=== PATIENT | male | born 1935 | race Caucasian/White ===

== ENCOUNTER → 2019-03-04 | Day surgery (SDC) | payer MEDICARE, BC ==
[~2019-03-04] MED LIST: ACETAMINOPHEN 325 MG TABLET PO PRN; ALBU2.5V8 IH; ALBUTEROL SULFATE 2.5 MG/3 ML NEBU. NEB PRN; ALPR0.5T6 PO; APIX5TAB3 PO; ATROPINE 0.5 MG/5 ML DISP.SYRIN. IV PRN; BALANCED SALT IRRIG OPHTH SOLN 15 ML BOTTLE. IRR ONE; BENA40TA3 PO; CATARACT OPHTH GEL 0.5 ML SYRINGE. OD ONE; CHONDROIT-SOD-HYALURONATE KIT. OD ONE; EPINEPHrine AMPULE 0.5 MG in BALANCED SALT IRRIG SOLN PLUS 500 ML IO ONE; ERYTHROMYCIN 0.5% OPHTH OINTMENT 1GM TUBE. OD ONE; FLUT1DIS5 IH; HYALURONIDASE 75UNITS in LIDOCAINE 2% PF OPHTH 10 ML SYRINGE. OD ONE; IV RINGERS SOLUTION,LACTATED 1,000 ML IV SCH; KETOROLAC TROMETHAMINE 0.5% OPHTH SOLUTION BOTTLE. OD SCH; KETOROLAC TROMETHAMINE 0.5% OPHTH SOLUTION BOTTLE. ONE; LEXAPRO5 MG PO; LIDO/EPI IN BSS OPHTH 8 ML SYRINGE OD SCH; MOXIFLOXACIN 0.5% OPHTH SOLUTION 3ML BOTTLE. OD SCH; PHENOL ORAL SPRAY 177ML BOTTLE. MM PRN; POVIDONE-IODINE 5% OPHTH SOLUTION 30ML BOTTLE. OD ONE; PROPOFOL 20 ML IV ONE; SOTA120T27 PO; SPIR25TA5 PO; TETRACAINE 0.5% OPHTH SOLUTION 4ML BOTTLE. OD ONE; TETRACAINE 0.5% OPHTH SOLUTION 4ML BOTTLE. OU ONE; diphenhydrAMINE 50 MG/ML VIAL IV PRN; prednisoLONE ACETATE 1% OPHTH SUSPENSION 5ML BOTTLE. OD SCH; prednisoLONE ACETATE 1% OPHTH SUSPENSION 5ML BOTTLE. ONE
[2019-03-04] MEDS: MOXIFLOXACIN 0.5% OPHTH SOLUTION 3ML BOTTLE. OD SCH ×3 (10:28→10:36)
--- NOTE | 2019-03-04 11:09 | PDOC4 ---
CATARACT Operative Report DATE DATE: 03/04/19 TIME: 11:07 Operation Performed Operative Report Name: Chase Ivey Operation Date: @TD@ Preoperative Diagnosis: 1. Senile cataract, RIGHT eye. 2. Anticipated intraoperative floppy iris syndrome, RIGHT eye. Postoperative Diagnosis: 1. Senile cataract, RIGHT eye. 2. Intraoperative floppy iris syndrome, RIGHT eye. Operation: 1. Phacoemulsification with posterior chamber intraocular lens implant. Surgeon: Cristopher Dsouza D.O. Anesthesia: Local with monitored anesthesia care. Description of Operation: With cardiac monitoring and intravenous sedation, the patient received peribulbar anesthesia in the holding area. Pressure was applied to the eye with a [place] balloon for approximately 10 minutes. The patient was taken to the operating room and placed in a supine position. The periorbital region was prepped and draped in the usual sterile fashion. A lid speculum was placed between the eyelids. The patient was positioned under the microscope. A temporal clear corneal incision was made with a keratome. Due to poor d ilation, 1 cc of epi-Shugarcaine was injected into the anterior chamber. Viscoelastic was then injected into the eye. A side port incision was made three clock hours to the left of the clear corneal incision. A cystotome and capsular forceps were used to make a continuous tear capsulorhexus. Hydrodissection was performed with balanced salt solution. The phacoemulsification needle was placed into the eye and the cataract was removed. The remaining cortical material was removed with irrigation and aspiration. The posterior capsule was noted to be clean and intact. Viscoelastic was again injected into the eye, inflating the posterior capsular bag. A foldable intraocular lens was then injected into the eye, unfolding as desired, and positioned in the capsular bag. The viscoelastic was aspirated from the eye. The wound edges were hydrated with balanced salt solution. There were no wound leaks. Viscoelastic was injected over the side port and clear corneal incisions. One drop of Vigamox and one drop of prednisolone acetate were instilled into the eye. The lid speculum was removed and a pressure dressing with a Lema shield was placed over the eye. The patient was taken to the recovery room in good condition. EDSON DSOUZA DO Mar 04, 2019 11:09
[2019-03-04 11:24] VITALS: BP 162/69
== END | disposition home or self-care (01) ==
LOC: SURG 09:09
PROVIDERS: ATTEND Ophthalmology
DX: H25.11 Age-related nuclear cataract, right eye (principal); H21.81 Floppy iris syndrome; I10 Essential (primary) hypertension; I48.91 Unspecified atrial fibrillation; D64.9 Anemia, unspecified; J43.9 Emphysema, unspecified; Z98.890 Other specified postprocedural states; Z99.81 Dependence on supplemental oxygen; Z72.89 Other problems related to lifestyle
CPT/HCPCS: 66984; J0171; J2704; V2632

== ENCOUNTER → 2019-03-25 | Day surgery (SDC) | payer MEDICARE, BC ==
[~2019-03-25] MED LIST changes: -CATARACT OPHTH GEL 0.5 ML SYRINGE. OD ONE; +CATARACT OPHTH GEL 0.5 ML SYRINGE. OS ONE; -CHONDROIT-SOD-HYALURONATE KIT. OD ONE; +CHONDROIT-SOD-HYALURONATE KIT. OS ONE; -ERYTHROMYCIN 0.5% OPHTH OINTMENT 1GM TUBE. OD ONE; +ERYTHROMYCIN 0.5% OPHTH OINTMENT 1GM TUBE. OS ONE; -HYALURONIDASE 75UNITS in LIDOCAINE 2% PF OPHTH 10 ML SYRINGE. OD ONE; +HYALURONIDASE 75UNITS in LIDOCAINE 2% PF OPHTH 10 ML SYRINGE. OS ONE; -IV RINGERS SOLUTION,LACTATED 1,000 ML IV SCH; -KETOROLAC TROMETHAMINE 0.5% OPHTH SOLUTION BOTTLE. OD SCH; +KETOROLAC TROMETHAMINE 0.5% OPHTH SOLUTION BOTTLE. OS SCH; -LIDO/EPI IN BSS OPHTH 8 ML SYRINGE OD SCH; -MOXIFLOXACIN 0.5% OPHTH SOLUTION 3ML BOTTLE. OD SCH; +MOXIFLOXACIN 0.5% OPHTH SOLUTION 3ML BOTTLE. OS SCH; -POVIDONE-IODINE 5% OPHTH SOLUTION 30ML BOTTLE. OD ONE; +POVIDONE-IODINE 5% OPHTH SOLUTION 30ML BOTTLE. OS ONE; -TETRACAINE 0.5% OPHTH SOLUTION 4ML BOTTLE. OD ONE; +TETRACAINE 0.5% OPHTH SOLUTION 4ML BOTTLE. OS ONE; -prednisoLONE ACETATE 1% OPHTH SUSPENSION 5ML BOTTLE. OD SCH; +prednisoLONE ACETATE 1% OPHTH SUSPENSION 5ML BOTTLE. OS SCH
[2019-03-25] MEDS: MOXIFLOXACIN 0.5% OPHTH SOLUTION 3ML BOTTLE. OS SCH ×3 (10:10→10:21)
--- NOTE | 2019-03-25 11:09 | PDOC4 ---
CATARACT Operative Report DATE DATE: 03/25/19 TIME: 11:08 Operation Performed Operative Report Name: Chase Ivey Operation Date: @TD@ Preoperative Diagnosis: 1. Senile cataract, LEFT: eye. Postoperative Diagnosis: 1. Senile cataract, LEFT: eye. Operation: 1. Phacoemulsification with posterior chamber intraocular lens implant. Surgeon: Cristopher Dsouza D.O. Anesthesia: Local with monitored anesthesia care. Description of Operation: With cardiac monitoring and intravenous sedation, the patient received peribulbar anesthesia in the holding area. Pressure was applied to the eye with a [place] balloon for approximately 10 minutes. The patient was taken to the operating room and placed in a supine position. The periorbital region was prepped and draped in the usual sterile fashion. A lid speculum was placed between the eyelids. The patient was positioned under the microscope. A temporal clear corneal incision was made with a keratome. Viscoelastic was then injected into the eye. A side port incision was made three clock hours to the left of the clear corneal incision. A cystotome and capsular forceps were used to make a continuous tear capsulorhexus. Hydrodissection was performed wi th balanced salt solution. The phacoemulsification needle was placed into the eye and the cataract was removed. The remaining cortical material was removed with irrigation and aspiration. The posterior capsule was noted to be clean and intact. Viscoelastic was again injected into the eye, inflating the posterior capsular bag. A foldable intraocular lens was then injected into the eye, unfolding as desired, and positioned in the capsular bag. The viscoelastic was aspirated from the eye. The wound edges were hydrated with balanced salt solution. There were no wound leaks. Viscoelastic was injected over the side port and clear corneal incisions. One drop of Vigamox and one drop of prednisolone acetate were instilled into the eye. The lid speculum was removed and a pressure dressing with a Lema shield was placed over the eye. The patient was taken to the recovery room in good condition. EDSON DSOUZA DO Mar 25, 2019 11:09
[2019-03-25 11:30] VITALS: BP 202/75
== END ==
LOC: SURG 09:30
PROVIDERS: ATTEND Ophthalmology
DX: H25.12 Age-related nuclear cataract, left eye (principal); I48.91 Unspecified atrial fibrillation; I10 Essential (primary) hypertension; J44.9 Chronic obstructive pulmonary disease, unspecified; F32.9 Major depressive disorder, single episode, unspecified; Z87.39 Personal history of other diseases of the musculoskeletal system and connective tissue; Z98.42 Cataract extraction status, left eye; Z98.41 Cataract extraction status, right eye; Z96.1 Presence of intraocular lens
CPT/HCPCS: 66984; J0171; J2704; V2632